=== PATIENT | male | born 1950 | race Caucasian/White ===

== ENCOUNTER 2024-11-04 16:33 | Inpatient (IN) | payer MEDICARE, MEDICAID ==
[~2024-11-04] VITALS: Ht 167.6 cm; Wt 83.0 kg
[2024-11-04 18:15] LABS: BASOPHILS % (AUTO) 1.8 % (0.0-2.0); EOSINOPHILS % (AUTO) 2.6 % (1.0-6.0); LYMPHOCYTES # (AUTO) 1.5 K/uL (1.0-4.8); LYMPHOCYTES % (AUTO) 21.5 % (22.0-44.0); MEAN CORPUSCULAR HEMOGLOBIN 26.1 pg (26.0-34.0); MEAN CORPUSCULAR HGB CONC 32.5 G/dL (31.0-37.0); MEAN CORPUSCULAR VOLUME 80 fL (80-100); MONOCYTES # (AUTO) 1.5 K/uL (0.1-1.0); MONOCYTES % (AUTO) 22.1 % (2.0-9.0); NEUTROPHILS # (AUTO) 3.5 K/uL (1.8-7.7); PLATELET COUNT (AUTO) 471 K/uL (150-450); RED BLOOD CELL COUNT(AUTO) 4.98 MIL/uL (4.50-5.90); RED CELL DISTRIBUTION WIDTH 15.4 % (11.5-14.5); WHITE BLOOD COUNT (AUTO) 6.8 K/uL (4.5-11.0)
[2024-11-04 18:26] LABS: ANION GAP 10 mmol/L (8-16); CALCIUM, TOTAL 8.4 mg/dL (8.8-10.5); CARBON DIOXIDE 20 mmol/L (22-29); CHLORIDE 99 mmol/L (98-107); CREATININE 0.75 mg/dL (0.60-1.30); GLOMERULAR FILTR. RATE CALC > 60 mL/min (>60); GLUCOSE,RANDOM 204 mg/dL (70-110); POTASSIUM 4.6 mmol/L (3.5-5.1); SODIUM SERUM 129 mmol/L (136-145); UREA NITROGEN, BLOOD 11 mg/dL (7-18)
[2024-11-04 18:36] LABS: LACTIC ACID 0.9 mmol/L (0.4-2.0)
[2024-11-04] MEDS ORDERED: ONDANSETRON HCL 4 MG/2 ML VIAL IVP PRN (21:30)
[2024-11-04] MEDS ORDERED: IPRATROPIUM BROMIDE 0.5 MG/2.5 ML NEB SOLUTION NEB PRN (21:30)
[2024-11-04] MEDS ORDERED: ALBUTEROL SULFATE 2.5 MG/0.5 ML NEB SOLUTION NEB PRN (21:30)
[2024-11-04] MEDS ORDERED: DEXTROSE 5%-LACTATED RINGERS 1,000 ML IV SCH (21:30)
[2024-11-04] MEDS: SODIUM CHLORIDE 0.9% 1,000 ML IV SCH (22:04)
[2024-11-04] MEDS: PIPERACILLIN/TAZO 3.375 GM/D5W 50 ML IV SCH (23:13)
[2024-11-04] MEDS: HEPARIN SODIUM,PORCINE 5,000 UNITS/ML VIAL SQ SCH (23:14)
[2024-11-05 00:25] LABS: APPEARANCE,URINE TURBID (CLEAR); BILIRUBIN,URINE NEGATIVE (NEGATIVE); COLOR,URINE DARK BROWN (YELLOW); GLUCOSE, URINE (UA) NEGATIVE (NEGATIVE); KETONES,URINE NEGATIVE (NEGATIVE); LEUKOCYTE ESTERASE ,URINE LARGE (NEGATIVE); NITRATE,URINE NEGATIVE (NEGATIVE); OCCULT BLOOD,URINE LARGE (NEGATIVE); PROTEIN,URINE 300-600,SEE CONFIRM mg/dL (NEGATIVE); SPECIFIC GRAVITIY, URINE 1.011 (1.003-1.030); UROBILINOGEN,URINE <=1.0 mg/dL (<=1.0)
[2024-11-05 00:38] LABS: BACTERIA,URINE Moderate /HPF (None Seen); RBC,URINE Full Field /HPF (0-2); SULFOSALICYLIC ACID,URINE 4+ (Negative); WBC,URINE 26-50 /HPF (0-5)
[2024-11-05 07:15] LABS: BASOPHILS % (AUTO) 1.8 % (0.0-2.0); HEMATOCRIT 41.1 % (41-53); HEMOGLOBIN 13.5 g/dL (13.5-17.5); LYMPHOCYTES # (AUTO) 1.4 K/uL (1.0-4.8); LYMPHOCYTES % (AUTO) 14.7 % (22.0-44.0); MEAN CORPUSCULAR HEMOGLOBIN 26.6 pg (26.0-34.0); MEAN CORPUSCULAR HGB CONC 32.9 G/dL (31.0-37.0); MEAN CORPUSCULAR VOLUME 81 fL (80-100); MONOCYTES # (AUTO) 1.6 K/uL (0.1-1.0); MONOCYTES % (AUTO) 17.6 % (2.0-9.0); NEUTROPHILS % (AUTO) 63.9 % (40.0-70.0); PLATELET COUNT (AUTO) 486 K/uL (150-450); RED BLOOD CELL COUNT(AUTO) 5.08 MIL/uL (4.50-5.90); RED CELL DISTRIBUTION WIDTH 15.9 % (11.5-14.5); WHITE BLOOD COUNT (AUTO) 9.3 K/uL (4.5-11.0)
[2024-11-05 07:17] LABS: ANION GAP 10 mmol/L (8-16); CALCIUM, TOTAL 8.3 mg/dL (8.8-10.5); CARBON DIOXIDE 20 mmol/L (22-29); CHLORIDE 100 mmol/L (98-107); CREATININE 0.76 mg/dL (0.60-1.30); GLOMERULAR FILTR. RATE CALC > 60 mL/min (>60); GLUCOSE,RANDOM 181 mg/dL (70-110); POTASSIUM 4.2 mmol/L (3.5-5.1); SODIUM SERUM 130 mmol/L (136-145); UREA NITROGEN, BLOOD 12 mg/dL (7-18)
[2024-11-05] MEDS: DOCUSATE SODIUM 100 MG CAPSULE PO SCH (08:29)
[2024-11-05 11:22] VITALS: BP 106/69; PULSE 93; RESP 18; TEMP 98.4; O2SAT 100
[2024-11-05] MEDS: INSULIN LISPRO 100 UNITS/ML SQ PRN (12:22)
[2024-11-05 13:25] LABS: GLUCOMETER DEV NAME(LOC) 5N.2C; GLUCOSE,POINT OF CARE 181 MG/DL (70-110)
[2024-11-05 15:00] VITALS: BP 104/65; PULSE 97; RESP 19; TEMP 98.2; O2SAT 97
[2024-11-05 19:42] VITALS: BP 105/75; PULSE 99; RESP 16; TEMP 98.3; O2SAT 100
[2024-11-05 20:36] LABS: GLUCOMETER DEV NAME(LOC) 5S.2D; GLUCOSE,POINT OF CARE 243 MG/DL (70-110)
[2024-11-06 04:31] VITALS: BP 126/74; PULSE 91; RESP 17; TEMP 98.5; O2SAT 100
[2024-11-06 06:31] LABS: GLUCOMETER DEV NAME(LOC) 6S.2; GLUCOSE,POINT OF CARE 154 MG/DL (70-110)
[2024-11-06 07:05] LABS: GLUCOMETER DEV NAME(LOC) 6S.1D; GLUCOSE,POINT OF CARE 246 MG/DL (70-110)
[2024-11-06 07:49] VITALS: BP 87/60; PULSE 97; RESP 18; TEMP 97.9; O2SAT 98
[2024-11-06] MEDS ORDERED: APIX2.5T PO (10:35)
[2024-11-06 10:36] VITALS: BP 104/59; PULSE 86; RESP 18; TEMP 98.6; O2SAT 97
[2024-11-06] MEDS: ACETAMINOPHEN 325 MG TABLET PO PRN (10:53)
[2024-11-06] MEDS ORDERED: ACET-2247 PO (11:13)
[2024-11-06] MEDS ORDERED: ASCO500 PO (11:13)
[2024-11-06] MEDS ORDERED: TAMS0.4C94 PO (11:14)
[2024-11-06] MEDS ORDERED: INSU100V42 SQ (11:14)
[2024-11-06] MEDS ORDERED: INSLAN SQ (11:14)
[2024-11-06] MEDS ORDERED: SILV20CR11 TP (11:14)
[2024-11-06] MEDS ORDERED: DIPH-1243 PO (11:14)
[2024-11-06] MEDS ORDERED: DOCU-385 PO (11:14)
[2024-11-06] MEDS ORDERED: METO50 PO (11:14)
[2024-11-06] MEDS ORDERED: NA P133E4 PR (11:14)
[2024-11-06] MEDS ORDERED: SIME80TA82 PO (11:14)
[2024-11-06] MEDS ORDERED: POTA-92 PO (11:14)
[2024-11-06] MEDS ORDERED: FERR325T27 PO (11:14)
[2024-11-06] MEDS ORDERED: MAGN-169 PO (11:14)
[2024-11-06] MEDS ORDERED: DULA0.75 SQ (11:14)
[2024-11-06] MEDS ORDERED: LACT-461 PO (11:14)
[2024-11-06] MEDS ORDERED: BISA10SU11 PR (11:14)
[2024-11-06] MEDS ORDERED: PIPE3.3719 IV (11:14)
[2024-11-06] MEDS ORDERED: TRAM50TA5 PO (11:14)
[2024-11-06] MEDS ORDERED: MULT-14 PO (11:14)
[2024-11-06] MEDS ORDERED: SENN-395 PO (11:14)
[2024-11-06] MEDS ORDERED: HYDR-4062 PO (11:14)
[2024-11-06 11:58] LABS: BASOPHILS % (AUTO) 1.1 % (0.0-2.0); EOSINOPHILS % (AUTO) 2.3 % (1.0-6.0); HEMATOCRIT 39.2 % (41-53); HEMOGLOBIN 12.7 g/dL (13.5-17.5); LYMPHOCYTES # (AUTO) 1.6 K/uL (1.0-4.8); LYMPHOCYTES % (AUTO) 17.4 % (22.0-44.0); MEAN CORPUSCULAR HEMOGLOBIN 26.1 pg (26.0-34.0); MEAN CORPUSCULAR HGB CONC 32.3 G/dL (31.0-37.0); MEAN CORPUSCULAR VOLUME 81 fL (80-100); MONOCYTES # (AUTO) 1.5 K/uL (0.1-1.0); MONOCYTES % (AUTO) 15.5 % (2.0-9.0); NEUTROPHILS % (AUTO) 63.7 % (40.0-70.0); PLATELET COUNT (AUTO) 481 K/uL (150-450); RED BLOOD CELL COUNT(AUTO) 4.87 MIL/uL (4.50-5.90); RED CELL DISTRIBUTION WIDTH 15.9 % (11.5-14.5); WHITE BLOOD COUNT (AUTO) 9.3 K/uL (4.5-11.0)
[2024-11-06 12:26] LABS: ANION GAP 5 mmol/L (8-16); CARBON DIOXIDE 24 mmol/L (22-29); CHLORIDE 104 mmol/L (98-107); CREATININE 0.71 mg/dL (0.60-1.30); GLOMERULAR FILTR. RATE CALC > 60 mL/min (>60); GLUCOSE,RANDOM 158 mg/dL (70-110); POTASSIUM 4.3 mmol/L (3.5-5.1); SODIUM SERUM 133 mmol/L (136-145); UREA NITROGEN, BLOOD 10 mg/dL (7-18)
[2024-11-06 12:30] LABS: ALANINE AMINOTRANSFERASE 43 U/L (12-78); ALBUMIN 1.6 g/dL (3.4-5.0); ALKALINE PHOSPHATASE 98 U/L (46-116); ASPARTATE AMINOTRANSFERASE 16 U/L (15-37); BILIRUBIN,TOTAL 0.2 mg/dL (0.1-1.0); TOTAL PROTEIN, SERUM 6.4 g/dL (6.4-8.2)
[2024-11-06 19:06] LABS: GLUCOMETER DEV NAME(LOC) 6S.2; GLUCOSE,POINT OF CARE 152 MG/DL (70-110)
[2024-11-06 19:07] LABS: GLUCOMETER DEV NAME(LOC) 6S.2; GLUCOSE,POINT OF CARE 173 MG/DL (70-110)
[2024-11-06 19:22] VITALS: BP 96/66; PULSE 66; RESP 18; TEMP 97.5; O2SAT 99
[2024-11-06 20:28] VITALS: BP 105/65; PULSE 87; RESP 20; TEMP 97.8; O2SAT 98
[2024-11-06] MEDS: GuaiFENesin [SUGAR-FREE] 200 MG/10 ML SOLUTION UDCUP PO PRN (22:03)
[2024-11-07 00:31] LABS: GLUCOMETER DEV NAME(LOC) 6N.2B; GLUCOSE,POINT OF CARE 219 MG/DL (70-110)
[2024-11-07 04:33] VITALS: BP 108/71; PULSE 73; RESP 18; TEMP 97.8; O2SAT 97
[2024-11-07 06:30] LABS: GLUCOMETER DEV NAME(LOC) 6N.2B; GLUCOSE,POINT OF CARE 152 MG/DL (70-110)
[2024-11-07 06:55] LABS: BASOPHILS % (AUTO) 1.1 % (0.0-2.0); EOSINOPHILS % (AUTO) 3.4 % (1.0-6.0); HEMATOCRIT 39.3 % (41-53); HEMOGLOBIN 12.8 g/dL (13.5-17.5); LYMPHOCYTES # (AUTO) 1.7 K/uL (1.0-4.8); LYMPHOCYTES % (AUTO) 24.5 % (22.0-44.0); MEAN CORPUSCULAR HEMOGLOBIN 26.4 pg (26.0-34.0); MEAN CORPUSCULAR HGB CONC 32.7 G/dL (31.0-37.0); MEAN CORPUSCULAR VOLUME 81 fL (80-100); MONOCYTES # (AUTO) 0.8 K/uL (0.1-1.0); MONOCYTES % (AUTO) 11.3 % (2.0-9.0); NEUTROPHILS # (AUTO) 4.2 K/uL (1.8-7.7); NEUTROPHILS % (AUTO) 59.7 % (40.0-70.0); PLATELET COUNT (AUTO) 505 K/uL (150-450); RED BLOOD CELL COUNT(AUTO) 4.86 MIL/uL (4.50-5.90); RED CELL DISTRIBUTION WIDTH 15.6 % (11.5-14.5); WHITE BLOOD COUNT (AUTO) 7.1 K/uL (4.5-11.0)
[2024-11-07 07:11] LABS: ALANINE AMINOTRANSFERASE 37 U/L (12-78); ALBUMIN 1.7 g/dL (3.4-5.0); ALKALINE PHOSPHATASE 92 U/L (46-116); ANION GAP 6 mmol/L (8-16); ASPARTATE AMINOTRANSFERASE 13 U/L (15-37); BILIRUBIN,TOTAL 0.1 mg/dL (0.1-1.0); CALCIUM, TOTAL 8.3 mg/dL (8.8-10.5); CARBON DIOXIDE 26 mmol/L (22-29); CHLORIDE 107 mmol/L (98-107); CREATININE 0.69 mg/dL (0.60-1.30); GLOMERULAR FILTR. RATE CALC > 60 mL/min (>60); GLUCOSE,RANDOM 113 mg/dL (70-110); POTASSIUM 3.9 mmol/L (3.5-5.1); SODIUM SERUM 139 mmol/L (136-145); TOTAL PROTEIN, SERUM 6.5 g/dL (6.4-8.2); UREA NITROGEN, BLOOD 10 mg/dL (7-18)
[2024-11-07 08:16] VITALS: BP 101/62; PULSE 79; RESP 18; TEMP 97.8; O2SAT 100
[2024-11-07 15:23] VITALS: BP 109/67; PULSE 78; RESP 18; TEMP 97.9; O2SAT 97
[2024-11-07] MEDS: BENZONATATE 100 MG CAPSULE PO SCH (16:09)
[2024-11-07 19:19] VITALS: BP 104/63; PULSE 79; RESP 18; TEMP 98; O2SAT 100
[2024-11-07 20:26] LABS: GLUCOMETER DEV NAME(LOC) 6S.2; GLUCOSE,POINT OF CARE 160 MG/DL (70-110)
[2024-11-07 20:31] LABS: GLUCOMETER DEV NAME(LOC) 6N.2B; GLUCOSE,POINT OF CARE 236 MG/DL (70-110)
[2024-11-07 21:36] LABS: GLUCOMETER DEV NAME(LOC) 5S.1D; GLUCOSE,POINT OF CARE 227 MG/DL (70-110)
[2024-11-08 04:31] VITALS: BP 122/72; PULSE 80; RESP 18; TEMP 97.9; O2SAT 98
[2024-11-08 07:11] LABS: GLUCOMETER DEV NAME(LOC) 6N.1B; GLUCOSE,POINT OF CARE 166 MG/DL (70-110)
[2024-11-08 08:09] VITALS: BP 100/60; PULSE 91; RESP 20; TEMP 97.5; O2SAT 97
[2024-11-08 13:40] LABS: GLUCOMETER DEV NAME(LOC) 6N.1B; GLUCOSE,POINT OF CARE 270 MG/DL (70-110)
[2024-11-08 15:53] VITALS: BP 2/64; PULSE 80; RESP 20; TEMP 97.5; O2SAT 96
[2024-11-08 21:06] LABS: GLUCOMETER DEV NAME(LOC) 5S.1D; GLUCOSE,POINT OF CARE 242 MG/DL (70-110)
[2024-11-08 21:08] VITALS: BP 107/71; PULSE 80; RESP 18; TEMP 97.6; O2SAT 99
[2024-11-09 04:43] VITALS: BP 122/70; PULSE 79; RESP 18; TEMP 97.6; O2SAT 97
[2024-11-09 07:56] LABS: GLUCOMETER DEV NAME(LOC) 5S.1D; GLUCOSE,POINT OF CARE 272 MG/DL (70-110)
[2024-11-09 09:33] VITALS: BP 116/76; PULSE 73; RESP 18; TEMP 97.8; O2SAT 100
[2024-11-09 12:11] LABS: GLUCOMETER DEV NAME(LOC) 5S.1D; GLUCOSE,POINT OF CARE 235 MG/DL (70-110)
[2024-11-09 16:41] VITALS: BP 117/69; PULSE 80; RESP 18; TEMP 97.6; O2SAT 100
[2024-11-09 18:10] LABS: GLUCOMETER DEV NAME(LOC) 5S.1D; GLUCOSE,POINT OF CARE 205 MG/DL (70-110)
[2024-11-09 20:44] VITALS: BP 110/63; PULSE 76; RESP 18; TEMP 98; O2SAT 98
[2024-11-09 22:05] LABS: GLUCOMETER DEV NAME(LOC) 4E.2; GLUCOSE,POINT OF CARE 169 MG/DL (70-110)
[2024-11-10 06:18] VITALS: BP 130/81; PULSE 79; RESP 18; TEMP 97.7; O2SAT 97
[2024-11-10 07:25] VITALS: BP 128/78; PULSE 80; RESP 18; TEMP 97.9; O2SAT 96
[2024-11-10 07:26] LABS: GLUCOMETER DEV NAME(LOC) 6N.1B; GLUCOSE,POINT OF CARE 168 MG/DL (70-110)
[2024-11-10 15:02] VITALS: BP 120/74; PULSE 76; RESP 20; TEMP 97.9; O2SAT 99
[2024-11-10 16:33] LABS: BASOPHILS % (AUTO) 0.4 % (0.0-2.0); EOSINOPHILS % (AUTO) 2.7 % (1.0-6.0); HEMATOCRIT 37.7 % (41-53); HEMOGLOBIN 11.8 g/dL (13.5-17.5); LYMPHOCYTES # (AUTO) 2.3 K/uL (1.0-4.8); MEAN CORPUSCULAR HEMOGLOBIN 25.2 pg (26.0-34.0); MEAN CORPUSCULAR HGB CONC 31.4 G/dL (31.0-37.0); MEAN CORPUSCULAR VOLUME 80 fL (80-100); MONOCYTES # (AUTO) 0.6 K/uL (0.1-1.0); NEUTROPHILS # (AUTO) 4.5 K/uL (1.8-7.7); NEUTROPHILS % (AUTO) 58.9 % (40.0-70.0); PLATELET COUNT (AUTO) 495 K/uL (150-450); WHITE BLOOD COUNT (AUTO) 7.6 K/uL (4.5-11.0)
[2024-11-10 16:36] LABS: GLUCOMETER DEV NAME(LOC) 4E.2; GLUCOSE,POINT OF CARE 185 MG/DL (70-110)
[2024-11-10 16:44] LABS: ANION GAP 4 mmol/L (8-16); CALCIUM, TOTAL 8.3 mg/dL (8.8-10.5); CARBON DIOXIDE 29 mmol/L (22-29); CHLORIDE 104 mmol/L (98-107); CREATININE 0.62 mg/dL (0.60-1.30); GLOMERULAR FILTR. RATE CALC > 60 mL/min (>60); GLUCOSE,RANDOM 185 mg/dL (70-110); POTASSIUM 4.1 mmol/L (3.5-5.1); SODIUM SERUM 137 mmol/L (136-145); UREA NITROGEN, BLOOD 8 mg/dL (7-18)
[2024-11-10 16:48] LABS: ALANINE AMINOTRANSFERASE 25 U/L (12-78); ALBUMIN 1.9 g/dL (3.4-5.0); ALKALINE PHOSPHATASE 74 U/L (46-116); ASPARTATE AMINOTRANSFERASE 21 U/L (15-37); BILIRUBIN,TOTAL 0.1 mg/dL (0.1-1.0); TOTAL PROTEIN, SERUM 6.5 g/dL (6.4-8.2)
[2024-11-10 17:31] LABS: GLUCOMETER DEV NAME(LOC) 6N.1B; GLUCOSE,POINT OF CARE 182 MG/DL (70-110)
[2024-11-10 20:07] VITALS: BP 112/71; PULSE 81; RESP 18; TEMP 98.1; O2SAT 99
[2024-11-11 04:34] VITALS: BP 131/81; PULSE 76; RESP 18; TEMP 98.1; O2SAT 98
[2024-11-11 06:35] LABS: GLUCOMETER DEV NAME(LOC) 6N.1B; GLUCOSE,POINT OF CARE 144 MG/DL (70-110)
[2024-11-11 06:35] LABS: GLUCOMETER DEV NAME(LOC) 6N.1B; GLUCOSE,POINT OF CARE 214 MG/DL (70-110)
[2024-11-11] MEDS ORDERED: KETAMINE HCL 50 MG/ML 10 ML VIAL ONE (06:46)
[2024-11-11] MEDS ORDERED: LIDOCAINE/PF 2% 5 ML SYRINGE IVP ONE (06:46)
[2024-11-11] MEDS ORDERED: PROPOFOL 1% ISO-OSM 1000 MG/100 ML BOTTLE ONE (06:46)
[2024-11-11 09:08] VITALS: BP 133/74; PULSE 74; RESP 18; TEMP 97.6; O2SAT 99
[2024-11-11] MEDS ORDERED: IOHEXOL 240 MG/ML 20 ML VIAL ONE (09:12)
[2024-11-11] MEDS ORDERED: SODIUM CL IRRIG SOLN BAG 6,000 ML IRRIG ONE (09:13)
[2024-11-11] MEDS ORDERED: FentaNYL CITRATE PF 100 MCG/2 ML VIAL IVP PRN (10:00)
[2024-11-11] MEDS ORDERED: SORBITOL IRRIGATION 3,000 ML IRRIG ONE (12:29)
[2024-11-11] MEDS: LIDOCAINE 2% 11 ML JELLY ONE (12:46)
[2024-11-11] MEDS: DEXTROSE 50%-WATER 25 GM/50 ML SYRINGE IVP PRN (12:51)
[2024-11-11 14:40] VITALS: BP 131/80; PULSE 88; RESP 18; TEMP 98.5; O2SAT 97
[2024-11-11 16:30] VITALS: BP 110/59; PULSE 82; RESP 18; TEMP 98; O2SAT 98
[2024-11-11 17:51] LABS: GLUCOMETER DEV NAME(LOC) 5S.1D; GLUCOSE,POINT OF CARE 262 MG/DL (70-110)
[2024-11-11] MEDS ORDERED: OXYGEN THERAPY IH SCH (20:00)
[2024-11-11 20:10] VITALS: BP 118/72; PULSE 59; RESP 18; TEMP 97.7; O2SAT 97
[2024-11-11 20:20] LABS: GLUCOMETER DEV NAME(LOC) 4E.2; GLUCOSE,POINT OF CARE 224 MG/DL (70-110)
[2024-11-12 04:45] VITALS: BP 129/71; PULSE 74; RESP 19; TEMP 98.4; O2SAT 97
[2024-11-12 05:56] LABS: GLUCOMETER DEV NAME(LOC) 6N.1B; GLUCOSE,POINT OF CARE 206 MG/DL (70-110)
[2024-11-12 05:56] LABS: GLUCOMETER DEV NAME(LOC) 6N.1B; GLUCOSE,POINT OF CARE 154 MG/DL (70-110)
[2024-11-12 08:00] VITALS: BP 113/79; PULSE 79; RESP 18; TEMP 97.9; O2SAT 100
[2024-11-12 11:41] LABS: GLUCOMETER DEV NAME(LOC) 5S.1D; GLUCOSE,POINT OF CARE 251 MG/DL (70-110)
[2024-11-12 15:40] VITALS: BP 126/78; PULSE 71; RESP 20; TEMP 97.5; O2SAT 100
[2024-11-12 21:07] VITALS: BP 112/70; PULSE 70; RESP 18; TEMP 97.7; O2SAT 97
[2024-11-13 05:39] VITALS: BP 123/72; PULSE 77; RESP 18; TEMP 98.3; O2SAT 100
[2024-11-13 05:41] LABS: GLUCOMETER DEV NAME(LOC) 6N.1B; GLUCOSE,POINT OF CARE 234 MG/DL (70-110)
[2024-11-13 05:55] LABS: GLUCOMETER DEV NAME(LOC) 4E.2; GLUCOSE,POINT OF CARE 169 MG/DL (70-110)
[2024-11-13 05:55] LABS: GLUCOMETER DEV NAME(LOC) 5S.1D; GLUCOSE,POINT OF CARE 152 MG/DL (70-110)
[2024-11-13 07:41] LABS: BASOPHILS % (AUTO) 0.8 % (0.0-2.0); EOSINOPHILS % (AUTO) 4.2 % (1.0-6.0); HEMATOCRIT 36.9 % (41-53); HEMOGLOBIN 11.9 g/dL (13.5-17.5); LYMPHOCYTES # (AUTO) 2.5 K/uL (1.0-4.8); LYMPHOCYTES % (AUTO) 33.5 % (22.0-44.0); MEAN CORPUSCULAR HEMOGLOBIN 25.8 pg (26.0-34.0); MEAN CORPUSCULAR HGB CONC 32.2 G/dL (31.0-37.0); MEAN CORPUSCULAR VOLUME 80 fL (80-100); MONOCYTES # (AUTO) 0.8 K/uL (0.1-1.0); MONOCYTES % (AUTO) 10.2 % (2.0-9.0); NEUTROPHILS # (AUTO) 3.8 K/uL (1.8-7.7); NEUTROPHILS % (AUTO) 51.3 % (40.0-70.0); PLATELET COUNT (AUTO) 472 K/uL (150-450); RED BLOOD CELL COUNT(AUTO) 4.61 MIL/uL (4.50-5.90); RED CELL DISTRIBUTION WIDTH 15.9 % (11.5-14.5); WHITE BLOOD COUNT (AUTO) 7.5 K/uL (4.5-11.0)
[2024-11-13 07:50] VITALS: BP 136/79; PULSE 70; RESP 20; TEMP 98.1; O2SAT 99
[2024-11-13 07:51] LABS: ALANINE AMINOTRANSFERASE 14 U/L (12-78); ALBUMIN 1.8 g/dL (3.4-5.0); ALKALINE PHOSPHATASE 66 U/L (46-116); ANION GAP 5 mmol/L (8-16); ASPARTATE AMINOTRANSFERASE 12 U/L (15-37); BILIRUBIN,TOTAL 0.2 mg/dL (0.1-1.0); CALCIUM, TOTAL 8.3 mg/dL (8.8-10.5); CARBON DIOXIDE 29 mmol/L (22-29); CHLORIDE 104 mmol/L (98-107); CREATININE 0.64 mg/dL (0.60-1.30); GLOMERULAR FILTR. RATE CALC > 60 mL/min (>60); GLUCOSE,RANDOM 140 mg/dL (70-110); POTASSIUM 3.4 mmol/L (3.5-5.1); SODIUM SERUM 138 mmol/L (136-145); TOTAL PROTEIN, SERUM 6.2 g/dL (6.4-8.2); UREA NITROGEN, BLOOD 12 mg/dL (7-18)
[2024-11-13 15:52] VITALS: BP 115/74; PULSE 78; RESP 18; TEMP 98.1; O2SAT 99
[2024-11-13] MEDS: POTASSIUM CHLORIDE 20 MEQ ER TABLET PO ONE (16:25)
[2024-11-13 23:09] VITALS: BP 132/78; PULSE 85; RESP 18; TEMP 98; O2SAT 97
[2024-11-14 11:26] LABS: GLUCOMETER DEV NAME(LOC) 4E.2; GLUCOSE,POINT OF CARE 198 MG/DL (70-110)
[2024-11-14 11:26] LABS: GLUCOMETER DEV NAME(LOC) 4E.2; GLUCOSE,POINT OF CARE 146 MG/DL (70-110)
== END 2024-11-13 18:00 | DRG 665 ==
LOC: EMS 16:33 → EDH 21:32 → 5S 11-05 10:00 → 6S 11-05 18:53 → 4E 11-07 18:46
PROVIDERS: ADMIT Internal Medicine; ATTEND Internal Medicine
PROC: 0V508ZZ Destruction of Prostate, Via Natural or Artificial Opening Endoscopic (ICD-10-PCS; 2024-11-11)
PROC: 0T5C8ZZ Destruction of Bladder Neck, Via Natural or Artificial Opening Endoscopic (ICD-10-PCS; 2024-11-11)
PROC: 0T5B8ZZ Destruction of Bladder, Via Natural or Artificial Opening Endoscopic (ICD-10-PCS; principal; 2024-11-11 12:00)
DX: N13.6 Pyonephrosis (principal); E43 Unspecified severe protein-calorie malnutrition; G93.41 Metabolic encephalopathy; I26.99 Other pulmonary embolism without acute cor pulmonale; E87.1 Hypo-osmolality and hyponatremia; N13.8 Other obstructive and reflux uropathy; D64.9 Anemia, unspecified; I10 Essential (primary) hypertension; J44.9 Chronic obstructive pulmonary disease, unspecified; E11.65 Type 2 diabetes mellitus with hyperglycemia; F03.90 Unspecified dementia, unspecified severity, without behavioral disturbance, psychotic disturbance, mood disturbance, and anxiety; R31.0 Gross hematuria; D75.839 Thrombocytosis, unspecified; E87.6 Hypokalemia; B96.4 Proteus (mirabilis) (morganii) as the cause of diseases classified elsewhere; E03.9 Hypothyroidism, unspecified; I25.10 Atherosclerotic heart disease of native coronary artery without angina pectoris; N40.1 Benign prostatic hyperplasia with lower urinary tract symptoms; Z74.01 Bed confinement status; Z68.29 Body mass index [BMI] 29.0-29.9, adult
CPT/HCPCS: 71045; 74176; 80048; 80053; 81001; 81002; 82962; 83605; 83735; 83930; 83935; 84300; 85025; 87077; 87081; 87086; 87186; 93970; 97110; 97162; 97166; 97530; 97535; 99285; G0378; J1644; J2543; J2704; J3490; J7030; Q9966; 36415-L1; 36415-TC; Z7610